=== PATIENT | female | born 1960 | race Caucasian/White ===

== ENCOUNTER → 2017-10-23 | Outpatient (CLI) | payer OTHER ==
[2017-10-23 10:04] LABS: Blood Urea Nitrogen 16 mg/dL (7-17)
--- NOTE | 2017-10-23 11:40 | CT ---
EXAMINATION TYPE: CT ChestAbdPelvis w con DATE OF EXAM: 10/23/2017 COMPARISON: None HISTORY: Malignant neoplasm of endometrium CT DLP: 1782.10 mGycm. Automated Exposure Control for Dose Reduction was Utilized. CONTRAST: CT scan of the thorax, abdomen and pelvis is performed with IV Contrast, patient injected with 100 ml mL of Isovue 300. FINDINGS: LUNGS:. Focal linear scarring or atelectasis in the lingula near diaphragm seen best coronal image 46 . No suspicious parenchymal nodule or mass is present. No pleural effusion or pneumothorax is noted b ilaterally. Tracheobronchial tree is patent. MEDIASTINUM: There are no greater than 1 cm hilar or mediastinal lymph nodes. No pericardial effusi on is seen. OTHER: No additional significant abnormality is seen. LIVER/GB: No significant abnormality is appreciated. PANCREAS: No significant abnormality is seen. SPLEEN: No significant abnormality is seen. ADRENALS: No significant abnormality is seen. KIDNEYS: No significant abnormality is seen. BOWEL: Oral contrast reaches level of the distal left colon. There is no suspicious small or large surinder wel dilatation. Mild wall thickening sigmoid colon and rectum is present. Cannot exclude colitis at t his level versus product of poor distention GENITAL ORGANS: Uterus is surgically absent. There are symmetric thin-walled cystic lesions in the an terior pelvis axial image 106 favoring bilateral lymphoceles. Other etiologies not excluded. LYMPH NODES: No greater than 1cm abdominal or pelvic lymph nodes are appreciated. OSSEOUS STRUCTURES: No significant abnormality is seen. OTHER: No significant additional abnormality is seen. IMPRESSION: Hysterectomy changes noted. Symmetric pelvic thin-walled low dense or cystic lesions favo r postoperative lymphoceles. No suspicious mass or adenopathy identified to suggest residual or meta static malignancy.
[2017-10-23 21:27] LABS: ALT 31 U/L (9-52); AST 25 U/L (14-36); Albumin 4.4 g/dL (3.5-5.0); Alkaline Phosphatase 92 U/L (38-126); Anion Gap 7 mmol/L; Blood Urea Nitrogen 16 mg/dL (7-17); Calcium 9.8 mg/dL (8.4-10.2); Carbon Dioxide 26 mmol/L (22-30); Chloride 107 mmol/L (98-107); Glucose 100 mg/dL (74-99); Potassium 5.3 mmol/L (3.5-5.1); Sodium 140 mmol/L (137-145); Total Bilirubin 0.5 mg/dL (0.2-1.3); Total Protein 7.1 g/dL (6.3-8.2)
[2017-10-23 21:43] LABS: T4, Free (Free Thyroxine) 0.77 ng/dL (0.78-2.19)
== END | disposition home or self-care (01) ==
LOC: RADCTMAIN 10-18 10:35 → MERGE 10-18 12:20 → RADCTMAIN 09:03
PROVIDERS: ATTEND Internal Medicine Hematology & Oncology
DX: C54.1 Malignant neoplasm of endometrium (principal); E03.9 Hypothyroidism, unspecified; Z90.710 Acquired absence of both cervix and uterus
CPT/HCPCS: 84439; 84481; 80053; 86304; 82565; 84443; 84520; 71260; 74177; 36415; Q9967

== ENCOUNTER → 2018-03-05 | Outpatient (CLI) | payer OTHER ==
--- NOTE | 2018-03-05 13:24 | CT ---
EXAMINATION TYPE: CT ChestAbdPelvis w con DATE OF EXAM: 03/05/2018 COMPARISON: Prior CT chest abdomen pelvis 10/23/2017 HISTORY: Malignant neoplasm of endometrium. CT DLP: 1721.6 mGycm Automated exposure control for dose reduction was used. CONTRAST: CT scan of the chest, abdomen and pelvis is performed with Oral Contrast and with IV Contrast, patien t injected with 100 mL of Isovue M300. FINDINGS: LUNGS: The lungs are grossly clear, there is no concerning parenchymal mass or nodule identified. T here is no pleural effusion or pneumothorax seen. The tracheobronchial tree is patent. MEDIASTINUM: There are no greater than 1 cm hilar or mediastinal lymph nodes. No pericardial effusi on is seen. AORTA: No significant abnormality is seen. OTHER: No additional significant abnormality is seen. LIVER/GB: No significant abnormality is appreciated. PANCREAS: No significant abnormality is seen. SPLEEN: No significant abnormality is seen. ADRENALS: No significant abnormality is seen. KIDNEYS: No significant abnormality is seen. REPRODUCTIVE ORGANS: Uterus and adnexal structures have been removed. BOWEL: Nonspecific colonic wall thickening may be due to lack of distention or muscular hypertrophy. FREE AIR: No Free Air visible. ASCITES: None seen. RETROPERITONEAL ADENOPATHY: No retroperitoneal adenopathy is seen. LYMPH NODES: The level of the pelvic sidewalls, external iliac chains there are low dense enlarged fo ci as noted on prior CT measuring approximately 5 cm in greatest AP dimension on the right and 6.2 cm on the left. URINARY BLADDER: No significant abnormality is seen. PELVIC ADENOPATHY: None visualized. OSSEOUS STRUCTURES: No significant abnormality is seen. IMPRESSION: Findings are stable compared to prior exam. Postop change. Stable cystic pelvic sidewall lesions. Additional findings above.
== END | disposition home or self-care (01) ==
LOC: RADCTMAIN 10:02
PROVIDERS: ATTEND Internal Medicine Hematology & Oncology
DX: C54.1 Malignant neoplasm of endometrium (principal); N94.89 Other specified conditions associated with female genital organs and menstrual cycle; Z98.890 Other specified postprocedural states
CPT/HCPCS: 71260; 74177; Q9967

== ENCOUNTER → 2018-08-31 | Outpatient (CLI) | payer OTHER ==
--- NOTE | 2018-08-31 10:58 | CT ---
EXAMINATION TYPE: CT ChestAbdPelvis w con DATE OF EXAM: 08/31/2018 COMPARISON: Prior CT 03/05/2018 HISTORY: Endometrial cancer with fallopian tube cancer CT DLP: 1459.9 mGycm Automated exposure control for dose reduction was used. CONTRAST: CT scan of the chest, abdomen and pelvis is performed with Oral Contrast and with IV Contrast, patien t injected with 100 mL of Isovue 300. FINDINGS: LUNGS: The lungs are grossly clear, there is no concerning parenchymal mass or nodule identified. T here is no pleural effusion or pneumothorax seen. The tracheobronchial tree is patent. MEDIASTINUM: There are no greater than 1 cm hilar or mediastinal lymph nodes. No pericardial effusi on is seen. AORTA: No significant abnormality is seen. OTHER: No additional significant abnormality is seen. LIVER/GB: No significant abnormality is appreciated. PANCREAS: No significant abnormality is seen. SPLEEN: No significant abnormality is seen. ADRENALS: No significant abnormality is seen. KIDNEYS: No significant abnormality is seen. REPRODUCTIVE ORGANS: Not seen BOWEL: Colonic wall thickening in the pelvis is question, there could BE muscular hypertrophy or pos sibly posttreatment change, there is no bowel obstruction FREE AIR: No Free Air visible. ASCITES: None seen. RETROPERITONEAL ADENOPATHY: No retroperitoneal adenopathy is seen. LYMPH NODES: No greater than 1 cm abdominal or pelvic lymph nodes are appreciated. URINARY BLADDER: No significant abnormality is seen. PELVIC ADENOPATHY: Low dense pelvic wall fluid density foci present bilaterally are again seen and s how similar appearance measuring approximately 4.8 cm in AP dimension on the right and 5 cm on the le ft which may be slightly diminished as compared to prior exam. OSSEOUS STRUCTURES: No significant interval change is seen. Small sclerotic focus in the posterior r ight ilium is stable, there are facet arthropathy changes in the lower lumbar spine. IMPRESSION: Essentially stable exam.
== END ==
LOC: RADCTMAIN 07:54
PROVIDERS: ATTEND Internal Medicine Hematology & Oncology
DX: C54.1 Malignant neoplasm of endometrium (principal); C57.00 Malignant neoplasm of unspecified fallopian tube; Z88.2 Allergy status to sulfonamides
CPT/HCPCS: 71260; 74177; Q9967

== ENCOUNTER → 2019-02-25 | Outpatient (CLI) | payer OTHER ==
--- NOTE | 2019-02-25 11:02 | CT ---
EXAMINATION TYPE: CT ChestAbdPelvis w con DATE OF EXAM: 02/25/2019 COMPARISON: 08/31/2018 and 10/23/2017 HISTORY: Endometrial CA CT DLP: 1402.8 mGycm. Automated Exposure Control for Dose Reduction was Utilized. CONTRAST: CT scan of the thorax, abdomen and pelvis is performed with IV Contrast, patient injected with 100 mL of Isovue 300. FINDINGS: LUNGS: Some scattered groundglass opacities are likely compatible to atelectasis. Very mild left [place] diaphragm elevation is similar to the priors. The lungs are grossly clear, there is no concerning par enchymal mass or nodule identified. There is no pleural effusion or pneumothorax seen. The tracheo bronchial tree is patent. MEDIASTINUM: There are no greater than 1 cm hilar or mediastinal lymph nodes. No pericardial effusi on is seen. LIVER/GB: Hepatic parenchyma is diffusely hypoattenuated in comparison to that of the spleen, most co mmonly seen in hepatic steatosis. This finding limits evaluation for hepatic masses. No gross evidenc e of hepatic mass is seen. No intrahepatic biliary ductal dilatation. No cholelithiasis. PANCREAS: No significant abnormality is seen. SPLEEN: No splenomegaly. ADRENALS: No nodule or thickening. KIDNEYS: No significant abnormality is seen. BOWEL: There is no dilated large or small bowel. Contrast reaches the transverse colon. Appendix is n ot identified however no right lower quadrant fat stranding changes are seen. There is very mild jensen tases recti. LYMPH NODES/GENITAL/ORGANS: Uterus is surgically absent. Pelvic sidewall fluid collections extending towards the external iliac chain is again seen measuring 4.7 x 3.1 cm on the right and 5.0 x 3.1 cm o n the left. The gonadal veins appear to lead to these lesions. Finding is unchanged overall from the prior. No new adenopathy. OSSEOUS STRUCTURES: Again there is a stable small sclerotic focus in the right iliac bone. Mild degen erative changes of the spine. IMPRESSION: 1. Stable bilateral pelvic low-density lesions. The gonadal veins appear to extend towards disease le sions. It is presumed the ovaries are surgically absent. In the setting of prior oophrectomy pelvic i nclusion cysts or postoperative lymphoceles are possible. These are stable from prior exams dating ba ck to 10/23/2017. 2. No new evidence of metastasis in the chest, abdomen, or pelvis.
[2019-02-25 11:06] LABS: Basophils % (A) 0 %; Eosinophils % (A) 1 %; HCT 44.9 % (34.0-46.0); HGB 14.8 gm/dL (11.4-16.0); Lymphocytes # (A) 0.9 k/uL (1.0-4.8); Lymphocytes % (A) 16 %; MCH 32.6 pg (25.0-35.0); MCV 98.8 fL (80.0-100.0); Mean Platelet Volume 6.5; Monocytes # (A) 0.3 k/uL (0-1.0); Monocytes % (A) 6 %; Neutrophils # (A) 4.1 k/uL (1.3-7.7); Neutrophils % (A) 75 %; Platelet Count 265 k/uL (150-450); RBC 4.54 m/uL (3.80-5.40); RDW 12.5 % (11.5-15.5); WBC 5.4 k/uL (3.8-10.6)
== END | disposition home or self-care (01) ==
LOC: RADCTMAIN 08:03
PROVIDERS: ATTEND Internal Medicine Hematology & Oncology
DX: M85.88 Other specified disorders of bone density and structure, other site (principal); Z90.722 Acquired absence of ovaries, bilateral; C54.1 Malignant neoplasm of endometrium; Z88.2 Allergy status to sulfonamides
CPT/HCPCS: 86304; 85025; 71260; 74177; 36415; Q9967 ×2

== ENCOUNTER → 2019-12-17 | Outpatient (CLI) | payer OTHER ==
--- NOTE | 2019-12-17 09:22 | CT ---
EXAMINATION TYPE: CT ChestAbdPelvis w con DATE OF EXAM: 12/17/2019 COMPARISON: 02/25/2019 HISTORY: Endometrial CA CT DLP: 1287.1 mGycm Automated exposure control for dose reduction was used. CONTRAST: CT scan of the chest, abdomen and pelvis is performed with Oral Contrast and with IV Contrast, patien t injected with 100 mL of Isovue 300. FINDINGS: LUNGS: The lungs are grossly clear, there is no concerning parenchymal mass or nodule identified. T here is no pleural effusion or pneumothorax seen. The tracheobronchial tree is patent. MEDIASTINUM: There are no greater than 1 cm hilar or mediastinal lymph nodes. No pericardial effusi on is seen. OTHER: No additional significant abnormality is seen. LIVER/GB: No significant abnormality is appreciated. PANCREAS: No significant abnormality is seen. SPLEEN: No significant abnormality is seen. ADRENALS: No significant abnormality is seen. KIDNEYS: No significant abnormality is seen. BOWEL: No significant abnormality is seen. LYMPH NODES: No greater than 1 cm abdominal or pelvic lymph nodes are appreciated. OSSEOUS STRUCTURES: Degenerative change of the spine. Tiny stable sclerotic focus in the lower thorac ic vertebral and right iliac bone.. OTHER: Uterus is surgically absent. Pelvic sidewall fluid collections extending towards the external iliac chain is again seen measuring 4.7 x 3.1 cm on the right and 5.0 x 3.1 cm on the left. The gonad al veins appear to lead to these lesions. Finding is unchanged overall from the prior. No new adenopa thy. Small fat-containing periumbilical hernia. IMPRESSION: 1. Stable bilateral pelvic low-density lesions. It is presumed the ovaries are surgically absent. In the setting of prior oophrectomy pelvic inclusion cysts, cystic dilation fallopian tube remnant or p ostoperative lymphoceles are possible. These are stable from prior exams dating back to 10/23/2017. 2. No evidence to suggest metastases.
== END | disposition home or self-care (01) ==
LOC: RADCTMAIN 07:00
PROVIDERS: ATTEND Internal Medicine Hematology & Oncology
DX: N94.89 Other specified conditions associated with female genital organs and menstrual cycle (principal); C54.1 Malignant neoplasm of endometrium; Z88.2 Allergy status to sulfonamides
CPT/HCPCS: 71260; 74177; Q9967 ×2

== ENCOUNTER → 2020-10-13 | Outpatient (CLI) | payer OTHER ==
--- NOTE | 2020-10-14 13:11 | CT ---
EXAMINATION TYPE: CT ChestAbdPelvis w con DATE OF EXAM: 10/13/2020 INDICATION: Endometrial cancer COMPARISON: 12/17/2019 CT DLP: 1800 mGycm CONTRAST: Performed with Oral Contrast and with IV Contrast, patient injected with 100 ml mL of Isovue 300. TECHNIQUE: Axial images at 5 mm thick sections. Reconstructed images in the coronal plane. Delayed images through the kidneys. FINDINGS: CT CHEST: Portion of the thyroid visualized is normal. No suspicious lung nodules or focal infiltrates are present. No enlarged mediastinal or hilar adenopathy is evident. The ascending aorta diameter at the level of the main pulmonary artery is 3.3 cm. The main pulmonary artery diameter at the bifurcation is 2.[address] ABDOMEN: Liver: Normal Spleen: Normal Pancreas: Normal Adrenal glands: The adrenal glands are normal. Gallbladder: Normal Kidneys: No masses are evident. No hydronephrosis is present. No cysts are present. Delayed images were obtained through the kidneys, which remain unremarkable. Aorta: Vascular calcification is within the aorta. Inferior vena cava: Normal. CT PELVIS: Loops of bowel within the abdomen and pelvis are normal. There are loops of bowel which are incom pletely distended or lack oral contrast limiting their evaluation. Appendix: Normal as visualized. Urinary bladder: Normal. Genitourinary structures: Uterus and ovaries not identified. Cystic areas within the right and left peripheral hemipelvis remain present, similar on the left and diminished in size on the right. Osseous structures: No suspicious lytic or sclerotic lesions. IMPRESSIONS: 1. No suspicious changes to suggest recurrent or metastatic disease. 2. Stable cystlike areas within the peripheral hemipelvis. Lymphoceles are favored among etiologies.
== END | disposition home or self-care (01) ==
LOC: RADCTMAIN 09:14
PROVIDERS: ATTEND Internal Medicine Hematology & Oncology
DX: C54.1 Malignant neoplasm of endometrium (principal); I89.8 Other specified noninfective disorders of lymphatic vessels and lymph nodes
CPT/HCPCS: 71260; 74177; Q9967

== ENCOUNTER → 2021-11-05 | Outpatient (CLI) | payer OTHER ==
--- NOTE | 2021-11-05 10:55 | CT ---
EXAMINATION TYPE: CT ChestAbdPelvis w con DATE OF EXAM: 11/05/2021 INDICATION: Hx of endometrial CA COMPARISON: 10/13/2020, 12/17/2019 CT DLP: 1668.4 mGycm CONTRAST: Performed with Oral Contrast and with IV Contrast, patient injected with 65 ML mL of Isovue 300. TECHNIQUE: Axial images at 5 mm thick sections. Reconstructed images in the coronal plane. Delayed images through the kidneys. FINDINGS: CT CHEST: Portion of the thyroid visualized is normal. No suspicious lung nodules or focal infiltrates are present. No enlarged mediastinal or hilar adenopathy is evident. The ascending aorta diameter at the level of the main pulmonary artery is 2.9 cm. The main pulmonary artery diameter at the bifurcation is 2.[address] ABDOMEN: Liver: Normal Spleen: Normal Pancreas: Normal Adrenal glands: The adrenal glands are normal. Gallbladder: Normal Kidneys: No masses are evident. No hydronephrosis is present. No cysts are present. Delayed images were obtained through the kidneys, which remain unremarkable. Aorta: Vascular calcification is within the aorta. Inferior vena cava: Normal. CT PELVIS: Loops of bowel within the abdomen and pelvis are normal. There are loops of bowel which are incom pletely distended or lack oral contrast limiting their evaluation. Oral contrast extends to the dista l transverse colon. Fecal debris is in the descending colon. Couple of diverticuli without acute dive rticulitis or within the sigmoid colon. Appendix: Not identified. No dilated tubular structure inflammatory change or other secondary signs o f acute appendicitis or evident. Urinary bladder: Normal. Genitourinary structures: Uterus is not identified. There appear to be bilateral ovarian cysts measur ing 3.2 cm on the left and 3.0 cm on the right. These are slightly larger than the comparison study. Differential diagnosis could include lymphoceles. Osseous structures: No suspicious lytic or sclerotic lesions. IMPRESSIONS: 1. Adnexal cysts slightly enlarged from 2020. Differential diagnosis could include lymphoceles. 2. Suspicious areas of metastatic disease not clearly evident.
== END | disposition home or self-care (01) ==
LOC: RADCTMAIN 08:23
PROVIDERS: ATTEND Internal Medicine Hematology & Oncology
DX: N83.8 Other noninflammatory disorders of ovary, fallopian tube and broad ligament (principal)
CPT/HCPCS: 71260; 74177; Q9967 ×2

== ENCOUNTER → 2022-08-08 | Outpatient (CLI) | payer OTHER ==
--- NOTE | 2022-08-08 11:28 | CT ---
EXAMINATION TYPE: CT ChestAbdPelvis w con DATE OF EXAM: 08/08/2022 COMPARISON: 11/05/2021 HISTORY: endometrial ca CT DLP: 1674.5 mGycm Automated exposure control for dose reduction was used. CONTRAST: CT scan of the chest, abdomen and pelvis is performed with Oral Contrast and with IV Contrast, patien t injected with 100 mL of Isovue 300. FINDINGS: CT chest: The lungs are clear and there is no suspicious mass or nodule. There is no airspace consolidation or abnormal interstitial density. The great vessels the chest are normal and there is no mediastinal, hilar or axillary adenopathy. There is no pleural effusion, pleural thickening or pneumothorax. The osseous structures of thorax are intact. CT abdomen and pelvis: The gallbladder is normal without distention, wall thickening, gallstones or pericholecystic fluid. T here is no biliary ductal dilatation. There is no focal mass or organomegaly involving the liver, pancreas, spleen or adrenal glands. The kidneys enhance symmetrically without solid renal mass or hydronephrosis. The caliber the abdomin al aorta is normal and there is no evidence of aneurysm. The caliber of the bowel loops are normal without dilatation or obstruction. No inflammatory changes are identified in the bowel wall or mesentery. There is no free intraperitoneal air or fluid. There are surgical absence of uterus. The single bilateral cystic well-circumscribed masses in the internal inguinal regions are again seen and appears slightly smaller in size than previous. The most likely represent seromas or lymphoceles . The osseous structures are intact. IMPRESSION: 1. Stable bilateral internal inguinal cystic masses most likely representing seromas or lymphoceles. 2. No other significant abnormalities. 3. No evidence of recurrent or metastatic disease. 4. Surgical absence of the uterus.
== END | disposition home or self-care (01) ==
LOC: RADCTMAIN 08:45
PROVIDERS: ATTEND Internal Medicine Hematology & Oncology
DX: C54.1 Malignant neoplasm of endometrium (principal); R19.09 Other intra-abdominal and pelvic swelling, mass and lump; Z90.710 Acquired absence of both cervix and uterus
CPT/HCPCS: 71260; 74177; Q9967